=== PATIENT | male | born 1990 | race African-American/Black ===

== ENCOUNTER 2017-10-15 02:10 | Emergency (ER) | payer BC ==
[~2017-10-15] VITALS: Ht 172.7 cm; Wt 84.5 kg
[2017-10-15 02:12] VITALS: BP 124/82
== END 2017-10-15 03:35 | disposition left against medical advice (07) ==
LOC: EME 02:10
DX: S01.511A Laceration without foreign body of lip, initial encounter (principal); Y04.2XXA Assault by strike against or bumped into by another person, initial encounter; Z53.21 Procedure and treatment not carried out due to patient leaving prior to being seen by health care provider